=== PATIENT | female | born 1990 | race Two or more races ===

== ENCOUNTER 2020-02-15 19:39 | Emergency (ER) | payer OTHER, MEDICAID ==
[2020-02-15] MEDS ORDERED: NORMAL SALINE 1000 ML 1,000 ML IV ONE (20:13)
--- NOTE | 2020-02-15 20:15 | ER Document Report ---
ED Medical Screen (RME) - General Chief Complaint: OB Problem (<20wks) Stated Complaint: PAIN IN LEFT LOWER ABDOMIN/+6WEEKS PREG Time Seen by Provider: 02/15/20 20:07 Mode of Arrival: Ambulatory Information source: Patient Notes: Patient is a 30-year-old female coming in today with left lower quadrant pain. She is 3 para 1 spontaneous AB 1. Approximately 6 weeks this time around. No vaginal bleeding. No contractions. No fevers or chills. No urinary symptoms. Denies vaginal discharge General exam: No acute distress Cardiac regular rate and rhythm Pulmonary no respiratory distress Abdomen nontender nondistended I have greeted and performed a rapid initial assessment of this patient. A comprehensive ED assessment and evaluation of the patient, analysis of test results and completion of the medical decision making process will be conducted by additional ED providers. - Related Data Home Medications: vitamins Physical Exam - Vital signs Vitals: Temp Pulse Resp BP Pulse Ox 98.6 F 74 16 116/67 100 02/15/20 19:46 02/15/20 19:46 02/15/20 19:46 02/15/20 19:46 02/15/20 19:46 Course - Vital Signs Vital signs: Temp Pulse Resp BP Pulse Ox 98.6 F 74 16 116/67 100 02/15/20 19:46 02/15/20 19:46 02/15/20 19:46 02/15/20 19:46 02/15/20 19:46
[2020-02-15 20:33] LABS: ABSOLUTE BASOPHILS # (AUTO) 0.1 10^3/uL (0.0-0.2); ABSOLUTE LYMPHOCYTES (AUTO) 1.7 10^3/uL (0.5-4.7); ABSOLUTE MONOCYTES (AUTO) 0.6 10^3/uL (0.1-1.4); ABSOLUTE NEUT (AUTO) 5.9 10^3/uL (1.7-8.2); BASOPHILS % (AUTO) 0.7 % (0-2); EOSINOPHILS % (AUTO) 0.2 % (0-6); HEMATOCRIT 39.2 % (36.0-47.0); HEMOGLOBIN 13.5 g/dL (12.0-15.5); LYMPHOCYTES % (AUTO) 20.3 % (13-45); MEAN CORPUSCULAR HEMOGLOBIN 29.1 pg (27.0-33.4); MEAN CORPUSCULAR HGB CONC 34.6 g/dL (32.0-36.0); MEAN CORPUSCULAR VOLUME 84 fl (80-97); MONOCYTES % (AUTO) 7.3 % (3-13); PLATELET COUNT 266 10^3/uL (150-450); RED BLOOD COUNT 4.66 10^6/uL (3.72-5.28); RED CELL DISTRIBUTION WIDTH 16.7 % (11.5-14.0); SEGMENTED NEUTROPHILS % (AUTO) 71.5 % (42-78); TOTAL CELLS COUNTED % (AUTO) 100 %; WHITE BLOOD COUNT 8.3 10^3/uL (4.0-10.5)
[2020-02-15 20:53] LABS: ALBUMIN 4.5 g/dL (3.5-5.0); ALKALINE PHOSPHATASE 44 U/L (38-126); ANION GAP 11 (5-19); APPEARANCE,URINE SLIGHTLY-CLOUDY; ASPARTATE AMINO TRANSFERASE 20 U/L (14-36); BILIRUBIN,DIRECT 0.1 mg/dL (0.0-0.4); BILIRUBIN,TOTAL 0.3 mg/dL (0.2-1.3); BILIRUBIN,URINE NEGATIVE (NEGATIVE); BLOOD UREA NITROGEN 11 mg/dL (7-20); CALCIUM 9.7 mg/dL (8.4-10.2); CARBON DIOXIDE 27 mmol/L (22-30); CHLORIDE 100 mmol/L (98-107); COLOR,URINE YELLOW; GLUCOSE 98 mg/dL (75-110); GLUCOSE, URINE NEGATIVE (NEGATIVE); KETONES,URINE NEGATIVE (NEGATIVE); POTASSIUM 3.8 mmol/L (3.6-5.0); PROTEIN,URINE NEGATIVE (NEGATIVE); TOTAL PROTEIN 7.5 g/dL (6.3-8.2); URINE SPECIFIC GRAVITY 1.026
--- NOTE | 2020-02-15 21:45 | ER Document Report ---
ED General - General Chief Complaint: OB Problem (<20wks) Stated Complaint: PAIN IN LEFT LOWER ABDOMIN/+6WEEKS PREG Time Seen by Provider: 02/15/20 20:07 Primary Care Provider: ILDEFONSO LIN MD [ACTIVE STAFF] - Follow up in 3-5 days (for OBGYN follow up) Mode of Arrival: Ambulatory - [facility] Notes: 30-year-old female to the emergency department with complaints of left lower qu adrant abdominal pain that is been going on for about 2 to 3 days. She states that she decided to take a home test and found out that she was positive for . She states that she has not had any vaginal bleeding. She denies any nausea or vomiting. She states that she has not yet started on prenatals. She is just recently moved to the area so she is not established with an DRILLING ENGINEERING MANAGER. She did is a G3, P2. She denies any other complaints. - Related Data Home Medications: vitamins Past Medical History - General Information source: Patient - Social History Smoking Status: Former Smoker Frequency of alcohol use: None Drug Abuse: None Family History: Reviewed & Not Pertinent Review of Systems - Review of Systems Constitutional: denies: Chills, Fever EENT: No symptoms reported Cardiovascular: denies: Chest pain, Palpitations, Heart racing, Orthopnea, Dyspnea, Syncope, Dizziness, Lightheaded Respiratory: denies: Cough, Short of breath Gastrointestinal: Abdominal pain. denies: Diarrhea, Nausea, Vomiting Genitourinary: denies: Frequency, Flank pain Female Genitourinary: . denies: Heavy/abnormal periods, Vaginal dischar ge, Vaginal bleeding Musculoskeletal: denies: Back pain Skin: No symptoms reported Hematologic/Lymphatic: No symptoms reported Neurological/Psychological: No symptoms reported Physical Exam - Vital signs Vitals: Temp Pulse Resp BP Pulse Ox 98.6 F 74 16 116/67 100 02/15/20 19:46 02/15/20 19:46 02/15/20 19:46 02/15/20 19:46 02/15/20 19:46 Interpretation: Normal - General General appearance: Appears well, Alert In distress: None - HEENT Head: Normocephalic, Atraumatic Eyes: Normal Pupils: PERRL Neck: Normal, Supple - Respiratory Respiratory status: No respiratory distress Chest status: Nontender Breath sounds: Normal. No: Rales, Rhonchi, Wheezing Chest palpation: Normal - Cardiovascular Rhythm: Regular Heart sounds: Normal auscultation Murmur: No - Abdominal Inspection: Normal Distension: No distension Bowel sounds: Normal Tenderness: Tender - Mild tenderness to palpation to the left lower quadrant.. No: McBurney's point, Mari's sign, Guarding, Rebound Organomegaly: No organomegaly - Back Back: Normal, Nontender. No: CVA tenderness - Neurological Neuro grossly intact: Yes Cognition: Normal Orientation: AAOx4 Johanna Coma Scale Eye Opening: Spontaneous Johanna Coma Scale Verbal: Oriented Johanna Coma Scale Motor: Obeys Commands [place] Coma Scale Total: 15 Speech: Normal Cerebellar coordination: Normal Motor strength normal: LUE, RUE, LLE, RLE Additional motor exam normals: Equal track sweeper Sensory: Normal - Psychological Associated symptoms: Normal affect, Normal mood - Skin Skin Temperature: Warm Skin Moisture: Dry Skin Color: Normal Course - Re-evaluation Re-evalutation: Impression: Abdominal pain in . Ultrasound illustrates a possible gestational sac but there is no pole or heartbeat just yet. Patient has not had any vaginal bleeding. we will bring her back in 2 days for 48-hour beta quant test. normal , or still could be potentially an ectopic since the pole is not definitive just yet. U Have advised that this could be a sign of early miscarriage, I have encouraged her to return sooner if she has worsening pain, vaginal bleeding or any other concerns. Encouraged her to start taking a vitamin. Urinalysis is slightly con cerning for a mild urinary tract infection. Thus, I will go ahead and start her on an antibiotic. Patient agrees with the plan. - Vital Signs Vital signs: Temp Pulse Resp BP Pulse Ox 98.5 F 77 15 113/74 100 02/15/20 22:53 02/15/20 22:53 02/15/20 22:53 02/15/20 22:53 02/15/20 22:53 - Laboratory Result Diagrams: 02/15/20 20:25 02/15/20 20:25 Laboratory results interpreted by me: 02/15/20 02/15/20 02/15/20 20:25 20:25 20:25 RDW 16.7 H Beta HCG, Quant 86944.00 H Urine Urobilinogen 2.0 H Leukocyte Esterase Rfl LARGE H - Diagnostic Test Radiology reviewed: Image reviewed, Reports reviewed Discharge - Discharge Clinical Impression: Left lower quadrant pain, , UTI (urinary tract infection) Condition: Stable Disposition: HOME, SELF-CARE Instructions: ([facility]), Urinary Tract Infection ([facility]) Additional Instructions: Please take antibiotics as prescribed. Today you had normal blood work with a hormone at approximately 12,000. On ultrasound there is a gestational sac seen but no pole or heartbeat. This dated approximately 5 weeks 6 days. Even though the gestational sac was seen in the uterus without a pole cannot be certain that this is completely normal . Please return in 48 hours to have a repeat hormone drawn. We will need to do watchful waiting over the next week to determine what is happening with the . You may take Tylenol for any pain. Please abstain from any use of tampons, sexual intercourse, douching. You should be following pelvic rest. Return sooner if any worsening pain, fever, or vaginal bleeding. Push fluids. You may take the medicine prescribed to you for nausea as needed. Prescriptions: Doxylamine Succinate/Vit B6 [Asad Solorio 10-10 mg Tablet] 1 each PO QHS #20 tablet. Cephalexin Monohydrate [Keflex 500 mg Capsule] 500 mg PO BID #6 capsule Referrals: ILDEFONSO LIN MD [ACTIVE STAFF] - Follow up in 3-5 days (for OBGYN follow up)
--- NOTE | 2020-02-15 21:54 | RADIOLOGY REPORT (SQ) ---
CLINICAL HISTORY: left lower abd pain 6 wks preg COMPARISON: None. TECHNIQUE: US TRANSVAGINAL 02/15/2020 8:10 PM DESTINATION IMAGINATION COORDINATOR FINDINGS: The uterus measures 7.5 cm. An intrauterine gestational sac is present measuring 11 mm, corresponding to five weeks six days. A 3 mm yolk sac is present. pole is not yet seen. Both ovaries are unremarkable with patent flow. IMPRESSION: Early intrauterine gestational sac.
[2020-02-15] MEDS ORDERED: CEPHALEXIN 500 MG CAPSULE PO ONE (22:13)
[2020-02-15 22:54] VITALS: BP 113/74
== END 2020-02-15 22:53 | disposition home or self-care (01) ==
LOC: ER 19:39
DX: O23.41 Unspecified infection of urinary tract in pregnancy, first trimester (principal); O26.891 Other specified pregnancy related conditions, first trimester; R10.32 Left lower quadrant pain; Z3A.01 Less than 8 weeks gestation of pregnancy; Z87.891 Personal history of nicotine dependence
CPT/HCPCS: 36415; 76817; 80053; 81001; 84702; 85025; 87086; 93976; 99285

== ENCOUNTER 2020-02-17 11:41 | Emergency (ER) | payer OTHER ==
--- NOTE | 2020-02-17 13:25 | ER Document Report ---
ED Medical Screen (RME) - General Chief Complaint: Abnormal Lab Results Stated Complaint: BLOOD DRAW Time Seen by Provider: 02/17/20 13:17 Primary Care Provider: KATHLEEN ZUNIGA MD [Primary Care Provider] - Follow up as needed - [facility] Notes: 02/17/20 13:23 30-year-old female with a history of PCOS G3, P1 reports she is technically 5 weeks 6 days when she had an ultrasound on February 14. Patient states she is having suprapubic abdominal cramping, no vaginal bleeding or discharge. Patient also was diagnosed with a UTI this past Sunday. she is advised to have repeat evaluation and 48 hours later. Patient states she just moved to the area, does not have a TRAINING GENERALIST or primary care provider to follow-up with. Denies any nausea vomiting diarrhea, fevers chills, chest pain shortness of breath. Reports last menstrual cycle was 01/02/2020. I have greeted and performed a rapid initial assessment of this patient. A comprehensive ED assessment and evaluation of the patient, analysis of test results and completion of the medical decision making process will be conducted by additional ED providers. PHYSICAL EXAMINATION: CV: s1, s2 regular LUNGS: No respiratory distress abd: Suprapubic tenderness - Related Data Allergies/Adverse Reactions: pineapple Allergy (Verified 02/17/20 13:15) Past Medical History - Social History Frequency of alcohol use: None Drug Abuse: None Physical Exam - Vital signs Vitals: Temp Pulse Resp BP Pulse Ox 97.7 F 81 14 108/63 100 02/17/20 11:46 02/17/20 11:46 02/17/20 11:46 02/17/20 11:46 02/17/20 11:46 Course - Vital Signs Vital signs: Temp Pulse Resp BP Pulse Ox 97.7 F 81 14 108/63 100 02/17/20 11:46 02/17/20 11:46 02/17/20 11:46 02/17/20 11:46 02/17/20 11:46 Doctor's Discharge - Discharge Referrals: KATHLEEN ZUNIGA MD [Primary Care Provider] - Follow up as needed
[2020-02-17 14:18] LABS: ABSOLUTE LYMPHOCYTES (AUTO) 1.3 10^3/uL (0.5-4.7); ABSOLUTE MONOCYTES (AUTO) 0.4 10^3/uL (0.1-1.4); BASOPHILS % (AUTO) 0.5 % (0-2); EOSINOPHILS % (AUTO) 0.1 % (0-6); HEMATOCRIT 39.2 % (36.0-47.0); HEMOGLOBIN 13.6 g/dL (12.0-15.5); LYMPHOCYTES % (AUTO) 19.6 % (13-45); MEAN CORPUSCULAR HEMOGLOBIN 29.2 pg (27.0-33.4); MEAN CORPUSCULAR HGB CONC 34.9 g/dL (32.0-36.0); MEAN CORPUSCULAR VOLUME 84 fl (80-97); MONOCYTES % (AUTO) 6.3 % (3-13); PLATELET COUNT 248 10^3/uL (150-450); RED BLOOD COUNT 4.67 10^6/uL (3.72-5.28); RED CELL DISTRIBUTION WIDTH 16.3 % (11.5-14.0); SEGMENTED NEUTROPHILS % (AUTO) 73.5 % (42-78); TOTAL CELLS COUNTED % (AUTO) 100 %; WHITE BLOOD COUNT 6.8 10^3/uL (4.0-10.5)
[2020-02-17 14:39] LABS: ANION GAP 12 (5-19); BLOOD UREA NITROGEN 9 mg/dL (7-20); CALCIUM 9.7 mg/dL (8.4-10.2); CARBON DIOXIDE 25 mmol/L (22-30); CHLORIDE 100 mmol/L (98-107); GLUCOSE 89 mg/dL (75-110); POTASSIUM 4.4 mmol/L (3.6-5.0)
[2020-02-17 14:41] LABS: APPEARANCE,URINE SLIGHTLY-CLOUDY; BILIRUBIN,URINE NEGATIVE (NEGATIVE); COLOR,URINE YELLOW; GLUCOSE, URINE NEGATIVE (NEGATIVE); KETONES,URINE NEGATIVE (NEGATIVE); LEUKOCYTE ESTERASE,URINE LARGE (NEGATIVE); NITRITE,URINE NEGATIVE (NEGATIVE); PROTEIN,URINE NEGATIVE (NEGATIVE)
--- NOTE | 2020-02-17 14:56 | RADIOLOGY REPORT (SQ) ---
EXAM DESCRIPTION: U/S OB TRANSVAGINAL W/O DOP IMAGES COMPLETED DATE/TIME: 02/17/2020 2:40 pm REASON FOR STUDY: pelvic pain, , 5 weeks preg, no vag bleeding COMPARISON: None. TECHNIQUE: Transvaginal static and realtime grayscale images acquired of the pelvis. Additional miracle cted spectral and color Doppler images recorded. All images stored on PACs. bHCG: Pending. CLINICAL DATES: LMP 01/01/2026 weeks 4 days LIMITATIONS: None. FINDINGS: FETUS: Single Living intrauterine . ULTRASOUND EGA: 6 weeks 0 days ULTRASOUND KEZIA: 10/12/2020 EFW: Not applicable less than 20 weeks. CRL: 0.33 cm FHR: 101 beats per minute. SURVEY: Too early to assess. AMNIOTIC FLUID: Adequate amount. PLACENTA: Not yet developed due to early gestation. SUBCHORIONIC BLEED: Yes SIZE OF BLEED: 11 x 6 x 5 mm UTERUS: No masses. No anomalies. CERVICAL LENGTH: 2.4 cm Closed. RIGHT ADNEXA: Normal ovary with normal vascular flow. 3.4 x 2.3 x 1.4 cm. No adnexal free fluid. No adnexal masses. LEFT ADNEXA: Normal ovary with normal vascular flow. 2.3 x 2.2 x 2.4 cm. There appears to be a 14 m m corpus luteum. No adnexal free fluid. No adnexal masses. FREE FLUID: None. OTHER: No other significant finding. IMPRESSION: LIVING INTRAUTERINE . EGA 6 weeks 0 days Trimester of : First trimester - 0 to 13 weeks. TECHNICAL DOCUMENTATION: JOB ID: [id number] [employer]- All Rights Reserved rev-08/24 Reading location - IP/workstation name: [email or web address]
--- NOTE | 2020-02-17 18:39 | ER Document Report ---
ED General - General Chief Complaint: Abnormal Lab Results Stated Complaint: BLOOD DRAW Time Seen by Provider: 02/17/20 13:17 Primary Care Provider: KATHLEEN ZUNIGA MD [ACTIVE STAFF] - Follow up as needed Mode of Arrival: Ambulatory Information source: Patient Notes: Patient is a 30-year-old female returns emergency room for reevaluation. Patient was seen here on Sunday and had an ultrasound and serum quantitative that showed that she was approximately 6 weeks. The pole was not seen but there was a gestational sac measured 11 mm at the time. Patient had some left lower quadrant pain at that time which is now gone. She was informed to return to ER in 48 hours for reevaluation and reultrasound. Patient states she does feel somewhat better. She is concerned about the because she has a history of PCOS and she had a miscarriage back in 2017. She is currently 3 para 1 with a 1 miscarriage. Patient also had a beta hCG serum hilton titative which was 12,664 done on Sunday. Patient currently denies any pain or discomfort no nausea no vomiting. She also states that she is established to get a NETWORKS COMPUTER CONSULTANT visit this coming . TRAVEL OUTSIDE OF THE [place] IN LAST 30 DAYS: No - HPI Onset: Last week Onset/Duration: Gradual, Better Quality of pain: No pain Severity: None Associated symptoms: None Exacerbated by: Denies Relieved by: Denies Similar symptoms previously: Yes Recently seen / treated by doctor: Yes - Related Data Allergies/Adverse Reactions: pineapple Allergy (Verified 02/17/20 13:15) Past Medical History - General Information source: Patient - Social History Smoking Status: Never Smoker Cigarette use (# per day): No Chew tobacco use (# tins/day): No Smoking Education Provided: No Frequency of alcohol use: None Drug Abuse: None Lives with: Family Family History: Reviewed & Not Pertinent Patient has suicidal ideation: No Review of Systems - Review of Systems Constitutional: No symptoms reported EENT: No symptoms reported Cardiovascular: No symptoms reported Respiratory: No symptoms reported Gastrointestinal: No symptoms reported Genitourinary: No symptoms reported Female Genitourinary: No symptoms reported Musculoskeletal: No symptoms reported Skin: No symptoms reported Hematologic/Lymphatic: No symptoms reported Neurological/Psychological: No symptoms reported -: Yes All other systems reviewed and negative Physical Exam - Vital signs Vitals: Temp Pulse Resp BP Pulse Ox 97.7 F 81 14 108/63 100 02/17/20 11:46 02/17/20 11:46 02/17/20 11:46 02/17/20 11:46 02/17/20 11:46 Interpretation: Hypotensive Notes: PHYSICAL EXAMINATION: GENERAL: Well-appearing, well-nourished and in no acute distress. HEAD: Atraumatic, normocephalic. LUNGS: Breath sounds clear to auscultation bilaterally and equal. No wheezes rales or rhonchi. HEART: Regular rate and rhythm without murmurs ABDOMEN: Soft, nontender, nondistended abdomen. No guarding, no rebound. No masses appreciated. Female : deferred Musculoskeletal: Normal range of motion, no pitting or edema. No cyanosis. NEUROLOGICAL: Normal speech, normal gait. Normal sensory, motor exams PSYCH: Normal mood, normal affect. SKIN: Warm, Dry, normal turgor, no rashes or lesions noted. - Notes Notes: PHYSICAL EXAMINATION: GENERAL: Well-appearing, well-nourished and in no acute distress. HEAD: Atraumatic, normocephalic. EYES: Pupils equal round and reactive to light, extraocular movements intact, conjunctiva are normal. ENT: Nares patent, oropharynx clear without exudates. Moist mucous membranes. NECK: Normal range of motion, supple without lymphadenopathy LUNGS: Breath sounds clear to auscultation bilaterally and equal. No wheezes rales or rhonchi. HEART: Regular rate and rhythm without murmurs ABDOMEN: Soft, nontender, nondistended abdomen. No guarding, no rebound. No masses appreciated. Female : deferred Musculoskeletal: Normal range of motion, no pitting or edema. No cyanosis. NEUROLOGICAL: Normal speech, normal gait. Normal sensory, motor exams PSYCH: Normal mood, normal affect. SKIN: Warm, Dry, normal turgor, no rashes or lesions noted. Course - Re-evaluation Re-evalutation: 02/17/20 18:58 Patient was here in extended period time today secondary to lack of room availability. She is doing much better she has no discomfort or pain no nausea no vomiting no dysuria at this time. She is only been on antibiotics for 2 days and feels like she is getting better. Ultrasound today showed that patient does have a single living uterine , gestational age is approximately 6 weeks 0 days. Ultrasound also showed a heart rate of 100 bpm. The survey was too early to assess. Amniotic fluid did show adequate amount. Patient has a small subchorionic bleed measuring 11 x 6 x 5 mm. No other anomalies noted. At this time patient could be discharged home she is been given a copy of the ultrasound and a handwritten note on her quantitative hCG of 17,627. She will follow-up with NETWORKS COMPUTER CONSULTANT . She will continue her antibiotics and she has got some relief from the discomfort. - Vital Signs Vital signs: Temp Pulse Resp BP Pulse Ox 98.3 F 77 18 108/66 100 02/17/20 19:00 02/17/20 19:00 02/17/20 19:00 02/17/20 19:00 02/17/20 19:00 - Laboratory Result Diagrams: 02/17/20 13:50 02/17/20 13:50 Laboratory results interpreted by me: 02/17/20 02/17/20 02/17/20 13:50 13:50 13:50 RDW 16.3 H Beta HCG, Quant 36230.00 H Urine Urobilinogen 2.0 H Ur Leukocyte Esterase LARGE H Discharge - Discharge Clinical Impression: Qualifiers: Weeks of gestation: less than 8 weeks Qualified Code(s): Z3A.01 - Less than 8 weeks gestation of UTI (urinary tract infection) Qualifiers: Urinary tract infection type: site unspecified Hematuria presence: without hematuria Qualified Code(s): N39.0 - Urinary tract infection, site not specified Condition: Stable Disposition: HOME, SELF-CARE Instructions: ([facility]), Urinary Tract Infection ([facility]) Additional Instructions: Home and rest. I have given you a copy of your ultrasounds for your past 2 visits. Take these with you to your NETWORKS COMPUTER CONSULTANT visit this week. Complete your antibiotic course. Return to the ER should you have increase in pain discomfort bleeding or any concerns. Highly important to keep your appointment with your CLERK GENERAL OFFICE this week. Referrals: KATHLEEN ZUNIGA MD [ACTIVE STAFF] - Follow up as needed
[2020-02-17 19:04] VITALS: BP 108/66
== END 2020-02-17 19:04 | disposition home or self-care (01) ==
LOC: ER 11:41
DX: O20.8 Other hemorrhage in early pregnancy (principal); O23.41 Unspecified infection of urinary tract in pregnancy, first trimester; O26.891 Other specified pregnancy related conditions, first trimester; R10.32 Left lower quadrant pain; Z3A.01 Less than 8 weeks gestation of pregnancy
CPT/HCPCS: 36415; 76817; 80048; 81001; 84702; 85025; 99284